=== PATIENT | female | born 1950 | race Caucasian/White ===

== ENCOUNTER 2021-01-10 15:34 | Inpatient (IN) | payer MEDICARE, OTHER ==
[~2021-01-10] VITALS: Ht 168 cm; Wt 55.1 kg
[~2021-01-10 15:34] MED LIST: BACTRIM DS TAB1 EACH PO; BELBUCA75 MCG BU; BENTYL10 MG PO; CALTRATE 600 +1 EACH PO; FOLIC ACID PO; GABAPENTIN100 MG PO; GABAPENTIN300 MG PO; IMITREX50 MG PO; MINOCYCLINE HC100 M1 PO; NEURONTIN300 MG PO; NORCO 5-325 TA1 EAC1 PO; NORCO 5-325 TA1 EACH PO; NORCO 5/3251 EACH PO; OMEGA 3 1,0001 EACH PO; PREDNISONE5 MG PO; PYRIDIUM200 MG PO; VITAMIN B PO; ZOVIRAX200 MG PO
[2021-01-10 17:44] LABS: ALBUMIN 3.7 g/dL (3.4-5.0); BASOPHIL 0.3 % (0-2); BILIRUBIN - TOTAL 0.4 mg/dL (0.2-1.0); CREATININE 0.7 mg/dL (0.51-0.95); EOSINOPHIL 0.6 % (0-7); GLOBULIN (CALCULATION) 2.8 g/dL; HCT 41.6 % (37.0-47.0); HGB 13.7 g/dl (12.5-16.0); LYMPHOCYTE 17.2 % (15-48); MCH 33.7 pg (25.0-31.0); MCHC 32.9 g/dL (32.0-36.0); MCV 102.2 fL (78.0-100.0); MONOCYTE 5.8 % (0-12); MPV 10.8 fL (6.0-9.5); NEUTROPHIL 75.5 % (41-80); NRBC 0; PLT 199 K/uL (150-400); POTASSIUM 3.4 mmol/L (3.5-5.1); RBC 4.07 M/uL (4.20-5.40); RDW 13.8 % (11.5-14.0); TOTAL PROTEIN 6.5 g/dL (6.4-8.2); WBC 8.8 K/uL (4.0-10.5)
[2021-01-10 18:38] LABS: BILIRUBIN NEGATIVE (NEGATIVE); BLOOD NEGATIVE Ery/uL (NEGATIVE); CLARITY CLEAR (CLEAR); COLOR YELLOW (YELLOW); GLUCOSE (U) NORMAL (NORMAL); LEUKOCYTES NEGATIVE Leu/uL (NEGATIVE); NITRITE NEGATIVE (NEGATIVE); PROTEIN NEGATIVE (NEGATIVE); SPECIFIC GRAVITY <=1.005 (1.001-1.030); UROBILINOGEN 0.2 mg/dL (0.2-1.0); pH 6.5 (5.0-9.0)
[2021-01-10 18:44] LABS: SQUAMOUS EPITHELIAL CELLS RARE
[2021-01-10] MEDS ORDERED: NEURONTIN300 MG PO (21:59)
[2021-01-10] MEDS ORDERED: NORCO 5/3251 EACH PO (21:59)
[2021-01-10] MEDS ORDERED: BENTYL10 MG PO (22:01)
[2021-01-10] MEDS ORDERED: FISH OIL 1,0001 EACH PO (22:01)
[2021-01-10] MEDS ORDERED: VALTREX500 MG PO (22:02)
[2021-01-10 23:36] LABS: PROTHROMBIN TIME 12.5 SECONDS (11.4-13.6)
[2021-01-10 23:37] LABS: PTT 31.6 SECONDS (22.2-34.7)
--- NOTE | 2021-01-11 00:12 | NUR ---
2355: PT INSTRUCTED RE NPO STATUS.
[2021-01-11 06:55] LABS: BASOPHIL 0.5 % (0-2); EOSINOPHIL 1.1 % (0-7); HCT 40.9 % (37.0-47.0); HGB 13.7 g/dl (12.5-16.0); LYMPHOCYTE 27.8 % (15-48); MCH 34.2 pg (25.0-31.0); MCHC 33.5 g/dL (32.0-36.0); MONOCYTE 7.9 % (0-12); MPV 10.9 fL (6.0-9.5); NEUTROPHIL 62.4 % (41-80); NRBC 0; PLT 188 K/uL (150-400); RBC 4.01 M/uL (4.20-5.40); RDW 13.9 % (11.5-14.0); WBC 6.5 K/uL (4.0-10.5)
[2021-01-11 06:58] LABS: BUN/CREAT RATIO (CALC) 20.6 RATIO; CREATININE 0.63 mg/dL (0.51-0.95); POTASSIUM 4.4 mmol/L (3.5-5.1)
[2021-01-11] MEDS ORDERED: PERCOCET 5-3251 EACH PO (12:10)
--- NOTE | 2021-01-11 16:00 | NUR ---
1600 B/P 77/40 HR 89 READJUSTED THE CUFF AND RECHECKED THE B/P 79/52 HR98 1602 INCREASED IVF TO 250ML/HR AND NOTIFED DR. LY 1610 NEW ORDERS FOR 1 L BOLUS OF LR AND STAT CBC, RECHECKED B/P 79/52 1620 PLACED ON TEL MON TO MONITOR HR AND B/P 99/56 HR 108 1630 BOLUS INFUSING AND B/P 126/52 AND HR 109, RESP 18 , 02 SAT 100% 1700 REPORTS FEELING SOME BETTER WILL CONTINUE TO MONITOR FOR CHANGES. 1730 B/P 93/51 HR 112 IV BOLUS STILL INFUSING. WILL MONITOR FOR CHANGES.
[2021-01-11 16:39] LABS: HCT 31.5 % (37.0-47.0); HGB 10.2 g/dl (12.5-16.0); MCH 33.8 pg (25.0-31.0); MCHC 32.4 g/dL (32.0-36.0); MCV 104.3 fL (78.0-100.0); MPV 10.6 fL (6.0-9.5); RBC 3.02 M/uL (4.20-5.40); RDW 13.9 % (11.5-14.0)
[2021-01-11 16:40] LABS: WBC 14.1 K/uL (4.0-10.5)
--- NOTE | 2021-01-11 18:10 | NUR ---
[address] LY OF INCREASED HEART RATE 130-140, B/P 91/56. NEW ORDERS FOR STAT TROPONIN, STAT EKG, AND MOVE TO TCU OR ICU. 1800 EKG HAS BEEN DONE AND REPORT WAS GIVEN TO DR. LY. WILL CONTINUE TO MONITOR FOR CHANGES. 1800 FAMILY ALSO NOTIFED OF THE TRANSFER.
--- NOTE | 2021-01-11 18:29 | NUR ---
1828 NOTIFED HOPE OF THE TRANFER TO ICU.
[2021-01-12 06:37] LABS: BASOPHIL 0.1 % (0-2); EOSINOPHIL 0 % (0-7); HCT 23.9 % (37.0-47.0); HGB 8.1 g/dl (12.5-16.0); LYMPHOCYTE 14.3 % (15-48); MCH 34.9 pg (25.0-31.0); MCHC 33.9 g/dL (32.0-36.0); NEUTROPHIL 76.3 % (41-80); NRBC 0; PLT 120 K/uL (150-400); RBC 2.32 M/uL (4.20-5.40); RDW 13.8 % (11.5-14.0); WBC 10.5 K/uL (4.0-10.5)
[2021-01-12 06:58] LABS: BUN/CREAT RATIO (CALC) 30.4 RATIO; CREATININE 0.56 mg/dL (0.51-0.95); POTASSIUM 4.1 mmol/L (3.5-5.1)
--- NOTE | 2021-01-12 14:39 | NUR ---
MET WITH FAMILY TO START PLANNING FOR D/C. PER PATIENT AND SPOUSE, IF THERAPY RECOMMENDS PT. TO RETURN HOME SHE WANTS [facility]. PT. HAS A ROLLATOR. SHE WANTS A 12/27. SHE HAS A SHOWER SEAT. SHE IS CURRENTLY WORKING WITH [employer] TO GET A ELECTRIC WHEELCHAIR. PT. HAS A WALK IN SHOWER. IF THERAPY RECOMMENDS SKILLED CARE THEY WANT [facility] FIRST AND THEN [facility]NE [facility] SECOND. PT. SELF CATHS 3 TIMES A DAY. SHE IS CONCERNED ABOUT BEING ABLE TO CONTINUE WITH SELF CATH WITH A BROKEN HIP. PER NURSE, KIA, PLANS ARE TO MOVE PT. BACK TO MED/SURG TODAY AFTER SHE COMPLETES HER BLOOD TRANSFUSION. PLANS ARE FOR THERAPY TO GET HER UP TOMORROW 01/13/2021. ADVISED PT AND SPOUSE THAT [facility] WILL FOLLOW UP WITH THEM I WILL BE ON LEAVE.
--- NOTE | 2021-01-12 17:41 | NUR ---
1 unit prbc given hbg 8.1 from 13 from admission
[2021-01-13 05:59] LABS: BASOPHIL 0.2 % (0-2); EOSINOPHIL 1.6 % (0-7); HGB 7.4 g/dl (12.5-16.0); LYMPHOCYTE 24.7 % (15-48); MCH 32.9 pg (25.0-31.0); MCHC 33.6 g/dL (32.0-36.0); MCV 97.8 fL (78.0-100.0); MPV 11.7 fL (6.0-9.5); NEUTROPHIL 63.1 % (41-80); NRBC 0; PLT 92 K/uL (150-400); RBC 2.25 M/uL (4.20-5.40); RDW 15.9 % (11.5-14.0); WBC 5.6 K/uL (4.0-10.5)
[2021-01-13 06:11] LABS: BUN/CREAT RATIO (CALC) 21.4 RATIO; CREATININE 0.56 mg/dL (0.51-0.95); POTASSIUM 3.4 mmol/L (3.5-5.1)
--- NOTE | 2021-01-13 15:12 | NUR ---
3 Patient and spouse have elected to go to SNF. They prefer [facility] or [facility]. They wish to go home with [facility] if they are not accepted at the one of the 2 SNFs. Referral have been made to both facilities.
[2021-01-14 06:40] LABS: BASOPHIL 0.1 % (0-2); EOSINOPHIL 2.3 % (0-7); HCT 31.4 % (37.0-47.0); LYMPHOCYTE 22.2 % (15-48); MCH 32.6 pg (25.0-31.0); MCHC 34.4 g/dL (32.0-36.0); MCV 94.9 fL (78.0-100.0); MONOCYTE 9.9 % (0-12); MPV 11.3 fL (6.0-9.5); NEUTROPHIL 65.1 % (41-80); NRBC 0; PLT 105 K/uL (150-400); RBC 3.31 M/uL (4.20-5.40); RDW 15.9 % (11.5-14.0); WBC 7.7 K/uL (4.0-10.5)
[2021-01-14 06:46] LABS: HGB 10.8 g/dl (12.5-16.0)
[2021-01-14 06:50] LABS: BUN/CREAT RATIO (CALC) 14.8 RATIO; CREATININE 0.54 mg/dL (0.51-0.95)
--- NOTE | 2021-01-14 12:31 | NUR ---
01/14 [facility] has accept patient. Ms. Pineda has chosen [facility]. Please call report to:[phone]. Fax DS to: [phone]. Address: [address] [place] [address]. Spouse will transport. Report given to [employer].
--- NOTE | 2021-01-14 13:10 | NUR ---
ANNEMARIE COPELAND'Serg AT 110 PM
[2021-01-14] MEDS ORDERED: OXYCODONE-ACET1 EAC1 PO (15:16)
[2021-01-14] MEDS ORDERED: NEURONTIN300 MG PO (17:00)
--- NOTE | 2021-01-14 17:50 | NUR ---
pt discharged via wheelchair to [facility] in [facility]. transported by . iv removed, tele removed. pt verbalized understanding of discharge instructions.
[2021-02-08] MEDS ORDERED: NORCO 5/3251 EACH PO (17:50)
[2021-03-22] MEDS ORDERED: NORCO 5/3251 EACH PO (13:24)
== END 2021-01-14 17:55 | DRG 521 ==
LOC: FER 15:34 → FMS 20:06 → FICU 20:06 → FTCU 01-13 10:24
PROVIDERS: Hospitalist; Nurse Practitioner; Orthopaedic Surgery; Physician Assistant; ADMIT Internal Medicine
PROC: 0SRB04A Replacement of Left Hip Joint with Ceramic on Polyethylene Synthetic Substitute, Uncemented, Open Approach (ICD-10-PCS; principal; 2021-01-11 10:45)
PROC: 30233N1 Transfusion of Nonautologous Red Blood Cells into Peripheral Vein, Percutaneous Approach (ICD-10-PCS; 2021-01-12)
PROC: 30233N1 Transfusion of Nonautologous Red Blood Cells into Peripheral Vein, Percutaneous Approach (ICD-10-PCS; 2021-01-13)
DX: S72.002A Fracture of unspecified part of neck of left femur, initial encounter for closed fracture (principal); R57.1 Hypovolemic shock; D62 Acute posthemorrhagic anemia; W01.0XXA Fall on same level from slipping, tripping and stumbling without subsequent striking against object, initial encounter; Z91.81 History of falling; Y93.9 Activity, unspecified; Y92.009 Unspecified place in unspecified non-institutional (private) residence as the place of occurrence of the external cause; Z20.822 Contact with and (suspected) exposure to COVID-19; M81.0 Age-related osteoporosis without current pathological fracture; R00.0 Tachycardia, unspecified; I07.1 Rheumatic tricuspid insufficiency; D50.9 Iron deficiency anemia, unspecified; I27.20 Pulmonary hypertension, unspecified; G93.89 Other specified disorders of brain; K58.9 Irritable bowel syndrome, unspecified; Z82.49 Family history of ischemic heart disease and other diseases of the circulatory system; Z90.49 Acquired absence of other specified parts of digestive tract; Z87.891 Personal history of nicotine dependence; Z80.7 Family history of other malignant neoplasms of lymphoid, hematopoietic and related tissues; Z88.1 Allergy status to other antibiotic agents; Z79.899 Other long term (current) drug therapy; Z83.3 Family history of diabetes mellitus
CPT/HCPCS: 36415; 36430; 71045; 71275; 73501; 73502; 76000; 80048; 80053; 81001; 84484; 85025; 85610; 85730; 86850; 86900; 86901; 86922; 88305; 93005; 94010; 94760; 94762; 96374; 96375; 97116; 97163; 97166; 97530-GP; 97535; C1776; J0171; J0697; J1885; J1940; J2250; J2270; J2405; J2550; J2704; J2710; J2795; J3010; J7120; P9016; Q9967; U0002

== ENCOUNTER 2021-08-28 18:39 | Day surgery (SDCO) | payer MEDICARE, OTHER ==
[~2021-08-28] VITALS: Ht 167.6 cm; Wt 47.2 kg
[~2021-08-28 18:39] MED LIST changes: +FISH OIL 1,0001 EACH PO; +HYDROCODON-ACE1 EAC2 PO; +OXYCODONE-ACET1 EAC1 PO; +PERCOCET 5-3251 EACH PO; +VALTREX500 MG PO
[2021-08-28 19:28] LABS: BASOPHIL 0.2 % (0-2); EOSINOPHIL 0 % (0-7); HCT 45.6 % (37.0-47.0); HGB 15.5 g/dl (12.5-16.0); LYMPHOCYTE 19.9 % (15-48); MCH 34.1 pg (25.0-31.0); MCV 100.4 fL (78.0-100.0); MPV 9.9 fL (6.0-9.5); NEUTROPHIL 76.7 % (41-80); NRBC 0; PLT 236 K/uL (150-400); RBC 4.54 M/uL (4.20-5.40); RDW 13.3 % (11.5-14.0); WBC 9.8 K/uL (4.0-10.5)
[2021-08-28 19:55] LABS: ALBUMIN 4.2 g/dL (3.4-5.0); BILIRUBIN - TOTAL 0.7 mg/dL (0.2-1.0); BUN/CREAT RATIO (CALC) 34.6 RATIO; CREATININE 0.52 mg/dL (0.51-0.95); GLOBULIN (CALCULATION) 3.1 g/dL; POTASSIUM 3.1 mmol/L (3.5-5.1); TOTAL PROTEIN 7.3 g/dL (6.4-8.2)
[2021-08-28 20:05] LABS: LACTIC ACID 2.4 mmol/L (0.4-1.9)
[2021-08-28 20:44] LABS: CORONAVIRUS 2019 SARS-COV-2 NEGATIVE (NEGATIVE); INFLUENZA A NAA NEGATIVE (NEGATIVE)
[2021-08-28 22:33] LABS: BILIRUBIN 1+ mg/dL (NEGATIVE); BLOOD NEGATIVE Ery/uL (NEGATIVE); CLARITY CLEAR (CLEAR); COLOR YELLOW (YELLOW); GLUCOSE (U) NORMAL (NORMAL); LEUKOCYTES NEGATIVE Leu/uL (NEGATIVE); NITRITE NEGATIVE (NEGATIVE); PROTEIN TRACE (LOW) mg/dL (NEGATIVE); SPECIFIC GRAVITY >=1.030 (1.001-1.030); UROBILINOGEN 0.2 mg/dL (0.2-1.0)
[2021-08-29] MEDS ORDERED: HYDROCODON-ACE1 EAC1 PO (01:18)
[2021-08-29 02:02] LABS: BILIRUBIN NEGATIVE (NEGATIVE); BLOOD NEGATIVE Ery/uL (NEGATIVE); CLARITY CLEAR (CLEAR); COLOR YELLOW (YELLOW); GLUCOSE (U) NORMAL (NORMAL); LEUKOCYTES NEGATIVE Leu/uL (NEGATIVE); NITRITE NEGATIVE (NEGATIVE); PROTEIN NEGATIVE (NEGATIVE); UROBILINOGEN 0.2 mg/dL (0.2-1.0)
[2021-08-29 05:47] LABS: BASOPHIL 0.2 % (0-2); EOSINOPHIL 0 % (0-7); HCT 37.4 % (37.0-47.0); HGB 12.6 g/dl (12.5-16.0); LYMPHOCYTE 27.5 % (15-48); MCH 34.2 pg (25.0-31.0); MCHC 33.7 g/dL (32.0-36.0); MCV 101.6 fL (78.0-100.0); MONOCYTE 7.1 % (0-12); MPV 10.2 fL (6.0-9.5); NRBC 0; PLT 195 K/uL (150-400); RBC 3.68 M/uL (4.20-5.40); RDW 13.5 % (11.5-14.0); WBC 9.1 K/uL (4.0-10.5)
[2021-08-29 06:23] LABS: BILIRUBIN - TOTAL 0.5 mg/dL (0.2-1.0); BUN/CREAT RATIO (CALC) 22.2 RATIO; CREATININE 0.54 mg/dL (0.51-0.95); GLOBULIN (CALCULATION) 2.1 g/dL; MAGNESIUM 1.8 mg/dL (1.8-2.4); PHOSPHORUS 3.1 mg/dL (2.6-4.7); POTASSIUM 3.9 mmol/L (3.5-5.1)
[2021-08-29 06:27] LABS: TOTAL PROTEIN 5.1 g/dL (6.4-8.2)
[2021-08-30 07:18] LABS: BASOPHIL 0.1 % (0-2); EOSINOPHIL 0.1 % (0-7); HCT 38.3 % (37.0-47.0); HGB 12.9 g/dl (12.5-16.0); LYMPHOCYTE 37.5 % (15-48); MCH 34.1 pg (25.0-31.0); MCHC 33.7 g/dL (32.0-36.0); MCV 101.3 fL (78.0-100.0); MONOCYTE 7.7 % (0-12); MPV 10.9 fL (6.0-9.5); NEUTROPHIL 54.5 % (41-80); NRBC 0; PLT 200 K/uL (150-400); RBC 3.78 M/uL (4.20-5.40); RDW 13.2 % (11.5-14.0); WBC 8.1 K/uL (4.0-10.5)
[2021-08-30 07:39] LABS: BUN/CREAT RATIO (CALC) 12.2 RATIO; CREATININE 0.49 mg/dL (0.51-0.95); MAGNESIUM 1.7 mg/dL (1.8-2.4); POTASSIUM 3.3 mmol/L (3.5-5.1)
[2021-08-30] MEDS ORDERED: ZOFRAN4 M1 PO (14:50)
--- NOTE | 2021-08-30 15:28 | NUR ---
08/30/21 Ms. Serrano lives at home with her spouse. 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 - She has a travel wc, motorized wc, rollator and built-in showere seat. They have a meeting with [facility] to arrange caregivers for 3 hours one day a week. - She was educated to [employer], [employer].
--- NOTE | 2021-08-30 15:48 | NUR ---
PT GOING HOME IV REMOVED, F/C REMOVED, DISCHARGE PAPERS GIVEN TO PT
== END 2021-08-30 15:59 | disposition home or self-care (01) ==
LOC: FER 18:39 → FMS 23:07
PROVIDERS: Emergency Medicine Emergency Medical Services; Internal Medicine; Nurse Practitioner; ADMIT Family Medicine
DX: K58.2 Mixed irritable bowel syndrome (principal); R11.2 Nausea with vomiting, unspecified; R10.9 Unspecified abdominal pain; E87.6 Hypokalemia; J63.4 Siderosis; J45.909 Unspecified asthma, uncomplicated; M81.0 Age-related osteoporosis without current pathological fracture; B02.9 Zoster without complications; E89.0 Postprocedural hypothyroidism; R63.4 Abnormal weight loss; Z68.1 Body mass index [BMI] 19.9 or less, adult; Z87.891 Personal history of nicotine dependence; Z79.899 Other long term (current) drug therapy; Z88.1 Allergy status to other antibiotic agents; Z20.822 Contact with and (suspected) exposure to COVID-19
CPT/HCPCS: 36415; 71045; 71260; 80048; 80053; 81003; 82150; 83036; 83605; 83690; 83735; 84100; 84145; 84484; 85025; 87040; 87045; 87046; 87088; 87449; 93005; C9113; G0378; J0780; J1170; J1650; J2270; J2405; J2550; J2765; J3480; J7030; Q9967; U0002